=== PATIENT | male | born 1950 | race Caucasian/White ===

== ENCOUNTER → 2016-08-31 | Outpatient (CLI) | payer OTHER | LOC: FIMAGING 13:00 | PROVIDERS: ATTEND Psychiatry & Neurology Neurology | DX: I48.91 Unspecified atrial fibrillation (principal); R00.2 Palpitations; R55 Syncope and collapse ==

== ENCOUNTER → 2016-10-19 | Outpatient (CLI) | payer OTHER ==
[~2016-10-19] MED LIST: IOPAMIDOL (ISOVUE 370) 100 ML BTL IV ONE
== END ==
LOC: FIMAGING 10:33
PROVIDERS: ATTEND Internal Medicine Cardiovascular Disease
DX: I48.91 Unspecified atrial fibrillation (principal)
CPT/HCPCS: Q9967

== ENCOUNTER 2016-10-27 11:19 | Observation (INO) | payer OTHER ==
[2016-10-27] MEDS ORDERED: MIDAZOLAM 2 MG/2 ML VIAL IVP ONE (11:23)
[2016-10-27] MEDS ORDERED: NS 1,000 ML IV ONE (11:23)
--- NOTE | 2016-10-27 11:50 | CPEKG ---
Heart Rate: 58 RR Interval: 1034 P-R Interval: 184 QRSD Interval: 94 QT Interval: 428 QTC Interval: 421 P [place]: 73 QRS [place]: 59 T Wave [place]: 48 EKG Severity - NORMAL ECG - EKG Impression: SINUS RHYTHM Electronically Signed By: Emeterio Aguero 27-Oct-2016 13:26:39
[2016-10-27 12:01] LABS: % IMMATURE GRANULYOCYTES 0.4 % (0.0-1.1); ABSOLUTE IMMATURE GRANULOCYTES 0.02 10^3/uL (0.00-0.10); ADD DIFF? NO; ADD MORPH? NO; ADD SCAN? NO; ATYPICAL LYMPHOCYTE FLAG 10 (0-99); FRAGMENT RBC FLAG 0 (0-99); HEMATOCRIT 43.5 % (40.0-51.0); HEMOGLOBIN 14.6 g/dL (13.7-17.5); LEFT SHIFT FLG 0 (0-99); LIPEMIA HEMOLYSIS FLAG 80 (0-99); MEAN CELL HEMOGLOBIN 27.7 pg (27.9-34.1); MEAN CELL HEMOGLOBIN CONCENTR. 33.6 g/dL (32.4-36.7); MEAN CELL VOLUME 82.4 fL (81.5-99.8); MEAN PLATELET VOLUME 8.9 fL (8.7-11.7); PLATELET CLUMPS FLAG 0 (0-99); PLATELET COUNT 250 10^3/uL (150-400); RED BLOOD CELL COUNT 5.28 10^6/uL (4.40-6.38); RED CELL DISTRIBUTION WIDTH 13.4 % (11.5-15.2)
[2016-10-27] MEDS ORDERED: HEPARIN/DEXTROSE 25,000 UNIT/500 ML BAG ONE (12:06)
[2016-10-27] MEDS ORDERED: HEPARIN 10,000 UNIT/10 ML MDV ONE (12:06)
[2016-10-27] MEDS ORDERED: LIDOCAINE 1% 300 MG/30 ML SDV ONE (12:06)
[2016-10-27] MEDS ORDERED: IOPAMIDOL (ISOVUE-300) 100 ML BTL ONE (12:07)
[2016-10-27] MEDS ORDERED: BUPIVACAINE 0.5% 30 ML SDV ONE (12:07)
[2016-10-27 12:10] LABS: INR 1.09 (0.83-1.16)
[2016-10-27 12:11] LABS: APTT 30.9 SEC (23.0-38.0)
[2016-10-27 12:16] LABS: ANION GAP 6 mEq/L (8-16); CALCIUM 9.1 mg/dL (8.5-10.4); CARBON DIOXIDE 27 mEq/l (22-31); CHLORIDE 102 mEq/L (97-110); GLOMERULAR FILTRATION RATE > 60; GLUCOSE 81 mg/dL (70-100); POTASSIUM 4.2 mEq/L (3.5-5.2); SODIUM 135 mEq/L (134-144)
[2016-10-27] MEDS ORDERED: ROCURONIUM 50 MG/5 ML VIAL ONE (12:22)
[2016-10-27] MEDS ORDERED: PROPOFOL 200 MG/20 ML VIAL ONE ×2 (12:23→13:30)
[2016-10-27] MEDS ORDERED: fentaNYL 100 MCG/2 ML INJ ONE (12:23)
[2016-10-27] MEDS ORDERED: MIDAZOLAM 2 MG/2 ML VIAL ONE (12:27)
[2016-10-27] MEDS ORDERED: PHENYLEPHRINE HCL 100 MCG/ML SYR ONE (12:57)
[2016-10-27] MEDS ORDERED: epHEDrine SULFATE 10 MG/ML SYR ONE (12:57)
[2016-10-27] MEDS ORDERED: PROTAMINE SULFATE 50 MG/5 ML VIAL IVP ONE (14:43)
[2016-10-27] MEDS ORDERED: ACETAMINOPHEN 325 MG TAB PO PRN (15:31)
[2016-10-27] MEDS ORDERED: ONDANSETRON 4 MG/2 ML VIAL IVP PRN (15:31)
--- NOTE | 2016-10-27 15:31 | EPPROC ---
Electrophysiology Procedure Note: ELECTROPHYSIOLOGIC STUDY AND BALLOON-CATHETER MEDIATED CRYOABLATION FOR PAROXYSMAL ATRIAL FIBRILLATION Procedures performed: 54421-29 EP evaluation with RA/RV/LA pace/record, with arrhythmia induction 07703-84 EP evaluation with RA/RV pace record, insert/reposition catheter, with arrhythmia induction 83159 Atrial fibrillation ablation Intracardiac echocardiogram Fluoroscopy INDICATION: Paroxysmal atrial fibrillation PROCEDURE: The patient arrived in the Electrophysiology Laboratory in the fasting state. The right groin, left groin and right infraclavicular area were prepped and draped in the usual sterile fashion. Anesthesiologist administered general anesthesia Dr. Pernell Diane. All catheters were placed percutaneously using the Seldinger technique and advanced into position under fluoroscopic guidance. One #7 Azerbaijani deflectable octapolar electrode catheter was placed in the His-bundle position via the left femoral vein (2mm spacing, IVC electrode for unipolar recordings). This catheter was placed in the coronary sinus after transseptal puncture and later placed in the SVC-R subclavian vein junction to pace the right phrenic nerve during right pulmonary vein ablation. One #8 Azerbaijani AcuNaV ultrasound catheter was placed in the left femoral vein and advanced into the right atrium. One #4 Azerbaijani sheath was inserted into the left femoral artery via percutaneous technique and used for continuous arterial blood pressure monitoring and intermittent ACT determination. Programmed stimulation was performed from the right atrium, left atrium (CS) and right ventricle. There was no evidence of AV accessory pathway. Intracardiac echo evaluation of the left atrium and pulmonary veins was performed. Baseline ACT was drawn and heparin bolus was administered and heparin drip was started prior to transseptal access. ACT was checked every 15 minutes and maintained in the range of 350-400 seconds. One 14Fr short sheath was placed in the right femoral vein. One 8Fr SL1 sheath was advanced into the right atrium via the 14Fr short sheath. Transseptal access was achieved via preexisting PFO. Pulmonary vein angiogram was done using SL1 sheath. CT angiography of pulmonary veins was done previously. There were distinct LSPV, LIPV, RSPV and RIPV. The SL1 sheath was exchanged for a [employer] Flexcath sheath using an Amplatz stiff guide wire. A 28 mm Cryoballoon catheter with a 20 mm Achieve catheter was placed via the sheath into the left atrium. Intracardiac ultrasound and PV angiograms were used to assist in placing the mapping catheter at the antrum of the pulmonary veins. All pulmonary veins were isolated successfully using cryoballoon ablation using freeze/thaw/freeze cycles at 2-3-minute intervals, with good [id number] of isolation. Coumadin ridge/Ligament of Kvng region was ablated. Pre and post pulmonary vein recordings were measured on the spiral Achieve catheter to ensure complete pulmonary vein isolation. During the right-sided ablation, phrenic nerve pacing was performed to assess the phrenic nerve strength ( manually and with ICE visualization of liver movement during phrenic capture) and the phrenic nerve was intact throughout the right-sided ablation and at the end of the procedure. An esophageal temperature probe (12 electrode, Circa) was placed by the anesthesiologist at the beginning of the procedure. Esophageal temperature was monitored continuously and cryoablation was interrupted if esophageal temperature was <15 C. Cryoapplications 7 total cryoablation time 952s. ICE imaging post ablation was consistent with pre ablation imaging with no changes noted, moreover there was no left atrial/left ventricular thrombus and no pericardial effusion. The catheters were withdrawn. Protamine was given. The sheaths were removed and manual pressure was used for hemostasis. The patient was recovered from anesthesia. There were no complications. The patient was arousable and moving all four extremities at the end of the procedure. CONCLUSIONS: 1. Paroxysmal atrial fibrillation. 2. Patent foramen ovale. 3. Successful pulmonary vein isolation procedure (left and right pulmonary vein antrum) using cryoballoon ablation. No apparent complications. Patient Problems: Problems Problem Status Onset Atrial fibrillation and flutter Acute
[2016-10-27 16:04] LABS: ANION GAP 9 mEq/L (8-16); CALCIUM 8.1 mg/dL (8.5-10.4); CARBON DIOXIDE 24 mEq/l (22-31); CHLORIDE 105 mEq/L (97-110); CREATININE 0.9 mg/dL (0.7-1.3); GLOMERULAR FILTRATION RATE > 60; GLUCOSE 83 mg/dL (70-100); MAGNESIUM 1.8 mg/dL (1.6-2.3); SODIUM 138 mEq/L (134-144)
--- NOTE | 2016-10-27 16:38 | CPEKG ---
Heart Rate: 70 RR Interval: 857 P-R Interval: 184 QRSD Interval: 92 QT Interval: 412 QTC Interval: 445 P Aylett: 71 QRS Aylett: 67 T Wave Aylett: 62 EKG Severity - BORDERLINE ECG - EKG Impression: SINUS RHYTHM EKG Impression: PROBABLE LEFT ATRIAL ABNORMALITY Electronically Signed By: Abelino Meza 28-Oct-2016 07:34:06
[2016-10-27] MEDS: ENOXAPARIN 80 MG/0.8 ML SYR SC SCH (20:58)
[2016-10-27] MEDS ORDERED: NON-FORMULARY NEW DRUG (Diltiazem Hcl [Cartia Xt 180mg] 180 MG) PO SCH (21:00)
[2016-10-27] MEDS ORDERED: DILTIAZEM CD 180 MG CAP PO SCH (21:00)
[2016-10-28 05:10] LABS: % IMMATURE GRANULYOCYTES 0.3 % (0.0-1.1); ABSOLUTE IMMATURE GRANULOCYTES 0.02 10^3/uL (0.00-0.10); ADD DIFF? NO; ADD MORPH? NO; ADD SCAN? NO; ATYPICAL LYMPHOCYTE FLAG 0 (0-99); FRAGMENT RBC FLAG 0 (0-99); HEMATOCRIT 38.3 % (40.0-51.0); LEFT SHIFT FLG 0 (0-99); LIPEMIA HEMOLYSIS FLAG 90 (0-99); MEAN CELL HEMOGLOBIN 28.2 pg (27.9-34.1); MEAN CELL HEMOGLOBIN CONCENTR. 33.9 g/dL (32.4-36.7); MEAN CELL VOLUME 83.1 fL (81.5-99.8); PLATELET CLUMPS FLAG 10 (0-99); PLATELET COUNT 210 10^3/uL (150-400); RED BLOOD CELL COUNT 4.61 10^6/uL (4.40-6.38); RED CELL DISTRIBUTION WIDTH 13.4 % (11.5-15.2)
[2016-10-28 05:18] LABS: INR 1.19 (0.83-1.16); PROTIME(PATIENT) 15.1 SEC (12.0-15.0)
[2016-10-28 06:05] LABS: ANION GAP 8 mEq/L (8-16); CALCIUM 8.2 mg/dL (8.5-10.4); CARBON DIOXIDE 24 mEq/l (22-31); CHLORIDE 103 mEq/L (97-110); CK-MB INTERPRETATION POSITIVE (NEGATIVE); CREATININE 0.8 mg/dL (0.7-1.3); GLOMERULAR FILTRATION RATE > 60; GLUCOSE 98 mg/dL (70-100); POTASSIUM 3.9 mEq/L (3.5-5.2); SODIUM 135 mEq/L (134-144)
[2016-10-28] MEDS: ENOXAPARIN 80 MG/0.8 ML SYR SC SCH (08:10)
--- NOTE | 2016-10-28 08:46 | ECHO ---
[id number] + + [address] : : [place] [address] : : [phone] + + Adult Echocardiographic Report + + :Name: YISEL SAN CStudy Date: 10/28/2016 08:00 AM BP: 131/85 mmHg : : Hospital Admission Number: [id number] Loc ation: 246: :: 1950 Gender: Male Height: 69 in : :Age: 65 yrs Race: WH Weight: 150 lb : :Reason For Study: s/p ablation : : BSA: 1.8 me ters2 : :History: s/p ablation : + + MMode/2D Measurements \T\ Calculations IVSd: 1.2 cm RVDd: 3.9 cm FS: 54.9 % Ao root diam: LVPWd: 0.92 cm LVIDd: 3.9 cm EDV(Teich): 3.4 cm LVIDs: 1.8 cm 67.4 ml LA dimension: ESV(Teich): 3.8 cm 9.4 ml EF(Teich): 86.1 % LVLd ap4: 7.8 cm SV(MOD-sp4): EDV(MOD-sp4): 73.0 ml 116.0 ml LVLs ap4: 6.8 cm ESV(MOD-sp4): 43.0 ml EF(MOD-sp4): 62.9 % Normal Measurement Values: + + :LVIDd (3.5-5.7cm) IVSd (0.6-1.1cm) LVPWd (0.6-1.1cm) Aortic Root (2.0-3.7cm)Left Atrium (1.5-4.0cm): :LV Vol(d) (76-115ml) LV Vol(s) (29-48ml) Ejec Fraction (50-65%)PV Avila (0.6- 1.2m/s) TV Avila (0.4-1.0m/s) : :MV E Avila (0.8-1.0m/s)MV A Avila (0.3-1.0m/s)LVOT Avila (0.7-1.2m/s) Asc Ao Avila ( 0.9-1.8m/s) : + + Doppler Measurements \T\ Calculations MV E max avila: Ao V2 max: LV V1 max: PA V2 max: 68.1 cm/sec 97.7 cm/sec 73.5 cm/sec 69.8 cm/sec MV A max avila: Ao max PG: LV V1 max PG: PA max P.8 cm/sec 3.8 mmHg 2.2 mmHg 1.9 mmHg MV E/A: 1.2 MV dec time: 0.15 sec TR max avila: 257.1 cm/sec TR max P.4 mmHg RAP systole: 5.0 mmHg RVSP(TR): 31.4 mmHg Left Ventricle The left ventricle is normal in size and function. There is borderline concentric left ventricular hypertrophy. Ejection Fraction = 65%. No regional wall motion abnormalities noted. Right Ventricle The right ventricle is normal in size and function. Atria The left atrium is mildly dilated. The Left Atrial Volume is 39 ml/m2. The right atrium is mildly dilated. There was no clot seen in the IVC. Known PFO on GILMER. Mitral Valve The mitral valve leaflets appear thickened, but open well. There is no mitral valve stenosis. There is mild mitral regurgitation. Tricuspid Valve The tricuspid valve is normal in structure and function. There is no tricuspid stenosis. There is mild tricuspid regurgitation. Right ventricular systolic pressure is 31mmHg. Aortic Valve The aortic valve is trileaflet. There is no aortic stenosis. There is no aortic insufficiency. Pulmonic Valve The pulmonic valve is normal in structure and function. There is no pulmonic valvular regurgitation. Great Vessels The aortic root is normal size. Pericardium/Pleural There is no pericardial effusion. Conclusion A two-dimensional transthoracic echocardiogram with M-mode and Doppler was performed. The left ventricle is normal in size and function. There is borderline concentric left ventricular hypertrophy. Ejection Fraction = 65%. The left atrium is mildly dilated. The right atrium is mildly dilated. There was no clot seen in the IVC. Known PFO on GILMER. There is mild mitral regurgitation. There is mild tricuspid regurgitation. Right ventricular systolic pressure is 31mmHg. Final Reading Physician: Gabe Moreno MD electronically signed on 10/28/2016 08:44 AM Ordering Physician: Gabe Moreno Performed By: Ciara Fernandes
--- NOTE | 2016-10-28 08:55 | CPEKG ---
Heart Rate: 65 RR Interval: 923 P-R Interval: 188 QRSD Interval: 92 QT Interval: 420 QTC Interval: 437 P Hermin[place]: 76 QRS [place]in[place]: 72 T Wave [place]in[place]: 67 EKG Severity - NORMAL ECG - EKG Impression: SINUS RHYTHM Electronically Signed By: Emeterio Aguero 28-Oct-2016 08:56:45
[2016-10-28] MEDS ORDERED: PANTOPRAZOLE SODIUM 40 MG TAB PO SCH (09:00)
[2016-10-28] MEDS ORDERED: DABIGATRAN ETEXILATE MESYL 150 MG CAP PO SCH (09:15)
[2016-10-28 11:13] VITALS: RESP 14; O2SAT 99
[2016-10-28 12:55] VITALS: BP 146/83; PULSE 77; TEMP 98.4
--- NOTE | 2016-10-28 19:42 | GDS ---
[f rep st] DISCHARGE SUMMARY DISCHARGE DIAGNOSES: 1. Paroxysmal atrial fibrillation. 2. Meniere disease. 3. Patent foramen ovale. BRIEF HISTORY: This is a 65-year-old man, with history of paroxysmal atrial fibrillation despite increased Rythmol dose. He has had atrial flutter ablation about 5 years ago. He does have a history of Meniere disease with either a fall or syncopal episode. He was started on Pradaxa in June. He has a CHADS-VASc score of 0. HOSPITAL COURSE: Patient underwent a successful pulmonary vein isolation with cryo balloon ablation done by Dr. Moreno. He remained stable overnight, however, he did have some bleeding at his right groin site, which was stopped easily with further compression. He has not had any further bleeding since that episode around midnight. Vital signs are stable. He has not had any chest pain, pressure, tightness, or shortness of breath. He has no pain or swelling in his legs. Testing : Chest CT that was done prior to admission pre-ablation, demonstrated no abnormalities. EKG today demonstrates sinus rhythm without ST-T wave changes. Echocardiogram done today demonstrates LV ejection fraction of 65%. There is no pericardial effusion or IVC clot. LABORATORY DATA: WBC is 6.22, hemoglobin 13, hematocrit 38.3, platelets 210. PT 15.1, INR 1.19. Sodium 135, potassium 3.9, chloride 103, bicarb 24, BUN 13, creatinine 0.8, glucose 98. CK 163, CK-MB fraction 18.5, CK-MB percent 11.3. Troponin is 6.8. Cardiac enzymes are elevated in a range as to be expected post ablation. PHYSICAL EXAMINATION: VITAL SIGNS: Blood pressure is 124/77, pulse is 58, respirations 14, O2 saturation on room air is 95%. GENERAL: He is alert and oriented, sitting up in the chair, in no acute distress. CARDIAC: Regular rate and rhythm without murmur, rub, or gallop. LUNGS: Clear to auscultation. ABDOMEN: Soft, and nontender. There is no flank tenderness. Groin sites are without bleeding, swelling, or ecchymosis. EXTREMITIES: No lower extremity edema. Bilateral +2 pedal pulses. DISCHARGE MEDICATIONS: Please see discharge medication reconciliation. Of note , Rythmol was stopped. He will continue with Cardizem and Pradaxa. He will also start omeprazole and continue that for 6 weeks post ablation. FOLLOWUP: He has a followup with Dr. Moreno on November 12, at 11 a.m. /[id number]/MODL MTDD
== END 2016-10-28 13:25 | disposition home or self-care (01) ==
LOC: FCATH 11:19 → INTOOBSV 15:14 → F2N 15:14
PROVIDERS: ADMIT Internal Medicine Cardiovascular Disease; ATTEND Internal Medicine Cardiovascular Disease
PROC: 025T3ZZ Destruction of Left Pulmonary Vein, Percutaneous Approach (ICD-10-PCS; principal; 2016-10-27)
PROC: 025S3ZZ Destruction of Right Pulmonary Vein, Percutaneous Approach (ICD-10-PCS; principal; 2016-10-27)
PROC: 4A023FZ Measurement of Cardiac Rhythm, Percutaneous Approach (ICD-10-PCS; principal; 2016-10-27)
PROC: B2151ZZ Fluoroscopy of Left Heart using Low Osmolar Contrast (ICD-10-PCS; principal; 2016-10-27)
PROC: 5A1213Z Performance of Cardiac Pacing, Intermittent (ICD-10-PCS; principal; 2016-10-27)
PROC: B245ZZZ Ultrasonography of Left Heart (ICD-10-PCS; principal; 2016-10-27)
PROC: 02K83ZZ Map Conduction Mechanism, Percutaneous Approach (ICD-10-PCS; principal; 2016-10-27)
DX: I48.0 Paroxysmal atrial fibrillation (principal); H81.09 Meniere's disease, unspecified ear
CPT/HCPCS: 93005; 93306; 93613; 93621; 93656; 93662; C1731; C1766; G0378; C1730; C1732; C1733; C1759; C1893; J1644; J1650; J2250; J2370; J2704; J2720; J3010; Q9967